=== PATIENT | female | born 1970 | race American Indian/Alaskan Native ===

== ENCOUNTER 2020-05-26 10:32 | Outpatient (CLI) | payer BC ==
--- NOTE | 2020-05-26 11:47 | XRay Report ---
CHEST 2 VIEWS, 05/26/2020 INDICATION: Cough COMPARISON: Chest radiograph, 03/09/2010 FINDINGS: Support devices: None. Heart: The cardiac silhouette is normal in size. Lungs/pleura: The lungs are clear of focal airspace disease or significant pleural effusion Additional findings: There are mild bony degenerative changes of the thoracic spine. IMPRESSION: 1. No evidence of acute cardiopulmonary process. Signer Name: Jessica Rollins MD Signed: 05/26/2020 11:43 AM Workstation Name: [id number]
== END 2020-05-26 10:33 | disposition home or self-care (01) ==
LOC: XRAY 10:32
PROVIDERS: ATTEND Internal Medicine
DX: R05 Cough (principal)
CPT/HCPCS: 71046